=== PATIENT | male | born 1975 | race Caucasian/White ===

== ENCOUNTER 2020-10-08 | Inpatient (IN) | payer MEDICAID ==
--- NOTE | 2020-10-07 20:30 | NUR ---
STARTED TRIAGE IN TRIAGE BECAUSE OF NO BEDS AVAILABLE. NEIGHBOR RANDY BOOTH BROUGHT PT IN AND ASSISTED WITH WHAT HE KNEW. [phone]
--- NOTE | 2020-10-07 20:50 | NUR ---
TO ROOM VIA W/C.
--- NOTE | 2020-10-07 21:30 | NUR ---
INTRODUCED SELF TO PT. PT RESTING ON STRETCHER WITH EYES OPEN. SPEECH IS UNCLEAR AND UNABLE TO ASCERTAIN WORDS. STATES "MY NEIGHBOR BROUGHT ME IN" PT DOES RECOGNIZE SELF AND YEAR BUT UNABLE TO RECOLLECT CURRENT LOCATION. RESPONDS TO PAINFUL AND VERBAL STIMULI. PT WITH POOR VENOUS ACCESS AND UNABLE TO OBTAIN LINE AND LABS. DR VELASCO NOTIFIED. CHICHI TREVINO IN ROOM FOR IV ACCESS ATTEMPT.
--- NOTE | 2020-10-07 22:00 | NUR ---
PT REETURNS FROM RADIOLOGY AND PLACED ON MONITOR. ATTEMPT MADE FOR IV SUCCESSFUL TO LEFT POSTERIOR WRIST WITH BLOOD SPECIMENS OBTAINED AND COVID SWAB COLLECTEED. PT TOLERATED WELL. IVF INTIATED TO SITE AND SECURED WITH COBAN.
[2020-10-07 22:34] LABS: HEMATOCRIT 38.4 % (39.0-50.0); HEMOGLOBIN 12.5 g/dl (14.0-18.0); IMMATURE GRANULOCYTES 0.9 % (0.0-5.0); MEAN CELL VOLUME 84.4 fL CALC (80.0-100.0); MEAN CORPUSCULAR HGB 27.5 pG CALC (26.0-32.0); MEAN CORPUSCULAR HGB CONC 32.6 g/dL CAL (32.0-36.0); NEUT# 9.94 thou/uL (1.82-7.42); RED BLOOD COUNT 4.55 mill/uL (4.70-6.10); RED CELL DISTRI WIDTH 15.4 % (11.5-15.5)
[2020-10-07 22:50] LABS: ALBUMIN 3.1 g/dL (3.2-5.0); BILIRUBIN, TOTAL 2.4 mg/dL (0.0-1.4); CREATININE 1.7 mg/dL (0.7-1.3); POTASSIUM 3.4 mmol/l (3.5-5.1); TOTAL PROTEIN 6.6 g/dL (6.3-8.2)
[2020-10-07 22:59] LABS: PROTHROMBIN TIME 10.5 SECONDS (9.0-12.5)
--- NOTE | 2020-10-07 23:15 | NUR ---
PT PROVIDED URINAL TO ATTEMPT FOR URINE SPECIMEN
--- NOTE | 2020-10-07 23:30 | NUR ---
PT UNABLE TO PROVIDE URINE SPECIMEN, DR VELASCO GIVES OKAY FOR PO FLUIDS. PT PROVIDED WATER BOTTLE. URINAL BEDSIDE.
[2020-10-08] VITALS (59 sets, daily range): BP systolic 76–184; BP diastolic 40–93
--- NOTE | 2020-10-08 00:10 | NUR ---
PT UNABLE TO PRODUCE URINE, PT CONSENTED FOR STRAIGHT CATH SPECIMEN. APPX 30 ML OF URINE OBTAINED VIA STERILE TECHNIQUE. PT TOLERATED WELL. SPECIMEN SENT TO LAB FOR ANALYSIS.
--- NOTE | 2020-10-08 00:45 | NUR ---
IV BICARB DRIP INTIATED PER ORDER. INFUSING TO LEFT WRIST WITHOUT DIFFICULTY RESTING ON STRETCHER WITH EYES OPEN AND SNORING. REST EVEN AND UNLABORED. SKIN WARM AND DRY. BUSINESS PLANNING ANALYST IN PLACE.
[2020-10-08 00:46] LABS: URINE BILIRUBIN - DIPSTICK NEGATIVE (NEGATIVE); URINE BLOOD DIPSTICK LARGE (NEGATIVE); URINE COLOR YELLOW; URINE GLUCOSE - DIPSTICK NEGATIVE (NEGATIVE); URINE KETONE NEGATIVE (NEGATIVE); URINE NITRITE - DIPSTICK NEGATIVE (Negative); URINE PH 5.5 (4.5-8.0); URINE PROTEIN - DIPSTICK 30 mg/dL (NEG-TRACE)
[2020-10-08 00:55] LABS: URINE EPITHELIAL CELLS FEW EPI/hpf (0-FEW); URINE LEUK ESTERASE NEGATIVE (NEGATIVE)
[2020-10-08 00:56] LABS: URINE AMORPH SEDIMENT MANY hpf (NONE-FER); URINE BACTERIA MANY hpf; URINE COARSE GRANULAR CAST FEW lpf; URINE FINE GRAN CAST FEW lpf
--- NOTE | 2020-10-08 01:10 | NUR ---
REPORT GIVEN TO ANITA TREVINO.
--- NOTE | 2020-10-08 01:35 | NUR ---
Admission Note Report Given to: ANITA TREVINO Transported by: Wheelchair X Stretcher Transported with: X Nurse X Transporter X Patent IV O2 X Streetcar Dispatcher Location: ICU X MS2 PT TRANSPORTED TO [place] VIA STRETCHER WITH TELE IN PLACE AND FLUIDS HANGING. NURSE ANITA MADE AWARE OF PTS ARRIVAL TO FLOOR. CARE RELINQUISHED A THIS TIME.
--- NOTE | 2020-10-08 02:30 | NUR ---
PATIENT ADMITTED FROM ER VIA STRETCHER WITH 2 ER STAFF IN ATTENDANCE. PATIENT MAX ASSIST TO TRANSFER INTO BED. PATIENT IS DROWSY AND NOT REPONDING TO MOST OF OF THE QUESTIONS BEING ASKED. PATIENT DOES RESPOND TO HIS NAME AND DOES KNOW HIS BIRTHDATE. PATIENT THINKS THAT HE IS IN [facility]. TELE MONITOR IN PLACE. VS TAKEN AND RECORDED. O2 SAT IS 99% ON ROOM AIR. IV SITE TO LEFT WRIST INTACT WITH IVF PATENT AND INFUSING ORDERED. LR HUNG AND INFUSING AT 250CC/HR. ATTEMPT TO ORIENT PATIENT TO ROOM AND SURROUNDINGS IS NOT SUCCESSFUL. BED ALARM IN PLACE FOR PATIENT SAFETY. CALL LIGHT IN REACH. WILL CONT TO MONITOR.
--- NOTE | 2020-10-08 04:30 | NUR ---
PATIENT RESTING IN BED WITH SEVERE AGWBMCW-BP-204'S WITH ELEVATED BP. IVF LR PATENT AND INFUSING VIA LEFT WRIST IV SITE AT 250CC/HR. PATIENT DID VOID 800CC OF YELLOW URINE. DR. VELASCO CALLED AND NEW ORDER FOR ATIVAN OBTAINED. WILL MEDICATE SOON PROFILED ON EMAR. WILL CONT TO MONITOR.
--- NOTE | 2020-10-08 05:00 | NUR ---
PATIENT RESTING IN BED WITH SEVERE TREMORS AND SHAKES EVEN AFTER RECIEVING ATIVAN 2MG IVP VIA LEFT WRIST SITE. RESP RATE IS ELEVATED AND PATIENT IS TRASHING ABOUT IN BED. LAB WORK WAS DRAWN FROM RIGHT HAND SITE.HR IS ELEVATED TO 140-150'S. IVF LR PATENT AND INFUSING AT 250CC/HR ORDERED. INCONT URINE . DILL CATH WAS INSERTED WITHOUT ANY DIFFICULTY DRAINING YELLOW URINE.#16 TURKMEN DILL CATH. CALL PLACED TO DR. VELASCO IN THE ER AND ORDER RECIEVED TO TRANSFER TO ICU. CALL PLACED TO PHANI AMAYA REGUARDING TRANSFER TO ICU. CALL PLACED TO ICU AND SPOKE TO CELIA TREVINO-PATIENT TO GO TO ICU BED 2. PATIENT TRANSFERRED TO ICU2 BED 2 VIA BED. PATIENT CONT TO HAVE SEVERE TREMORS AND THRACHING IN BED. BEDSIDE REPORT GIVEN TO CELIA TREVINO AND LINDA ARCHULETA.
--- NOTE | 2020-10-08 05:05 | NUR ---
RECEIVED INTO ICU BED VIA BED FROM M/S. PATIENT EYES OPEN ALTHOUGH NOT ANSERING ANY QUESTIONS. ABLE TO MOVE ALL EXTREMITIES. PUPILS DILATED WITH BRISK REACTION TO LIGHT. CHILLING NOTED, TEMP 101.0. RESP SHALLOW, TACHYPNEIC. 0O2 SAT 93% BREATH SOUNDS CLEAR. DILL DRAINING SMALL AMOUNT OF SUSAN URINE. NO PERIPHERAL EDEMA, PULSES INTACT. IV IN LFA WITH LR INFUSING AT 250 ML/HR. COW TESTER SHOWS ST, HR 140'S-150'S.
--- NOTE | 2020-10-08 06:05 | NUR ---
O2 SAT 88% APPLIED O3 PER NC AT 3 L.
--- NOTE | 2020-10-08 06:10 | NUR ---
CALL TO MELISSA SARMIENTO/EFRAIN TO REPORT TEMP ELEVATION OF 104.2, SUSTAINED HR 140'S-150'S. NEW ORDERS RECEIVED.
[2020-10-08 06:24] LABS: HEMATOCRIT 39.2 % (39.0-50.0); HEMOGLOBIN 12.8 g/dl (14.0-18.0); MEAN CELL VOLUME 83.4 fL CALC (80.0-100.0); MEAN CORPUSCULAR HGB 27.2 pG CALC (26.0-32.0); MEAN CORPUSCULAR HGB CONC 32.7 g/dL CAL (32.0-36.0); RED BLOOD COUNT 4.7 mill/uL (4.70-6.10); RED CELL DISTRI WIDTH 15.8 % (11.5-15.5)
--- NOTE | 2020-10-08 06:30 | NUR ---
INCONTINENT OF LARGE AMOUNT OF FORMED WITH SOME LOOSE STOOL. SKIN CRE DONE , PARTIAL BED CHANGE.
[2020-10-08 06:32] LABS: IMMATURE GRANULOCYTES 0.4 % (0.0-5.0); NEUT# 3.69 thou/uL (1.82-7.42)
[2020-10-08 06:33] LABS: ANION GAP 14 (6-22 (CALC)); BUN 52 mg/dL (9-20); BUN/CREATININE RATIO 38 (12-20 (CALC)); CARBON DIOXIDE 22 mmol/l (22-30); CHLORIDE 108 mmol/l (95-108); CREATININE 1.4 mg/dL (0.7-1.3); GFR 54 ML/MIN (>=60 (CALC)); GFR FOR AFR.AMER. > 60 ML/MIN (>=60 (CALC)); SODIUM 140 mmol/l (137-146)
[2020-10-08 06:36] LABS: POTASSIUM 4.1 mmol/l (3.5-5.1)
--- NOTE | 2020-10-08 06:45 | NUR ---
REPORT RECEIVED FROM CELIA TREVINO. CARE ASSUMED.
--- NOTE | 2020-10-08 07:15 | NUR ---
PT RESTING IN BED AWAKE. PT IS ALERT. SPEECH IS GARBLED. UNABLE TO ASSESS ORIENTATION. SHIFT ASSESSMENT COMPLETED AT THIS TIME. SPOKE WITH MELISSA ZUNIGA ABOUT ELEVATED LACTIC ACID, LOW BP, ELEVATED, TEMP AND HEART RATE. NEW ORDERS RECEIVED. CALL LIGHT IN REACH. WILL CONTINUE TO MONITOR.
--- NOTE | 2020-10-08 07:45 | NUR ---
DR ESPANA AT BEDSIDE FOR CENTRAL LINE PLACEMENT.
[2020-10-08 07:56] LABS: ETHYL ALCOHOL 0 mg/dl (0-30)
--- NOTE | 2020-10-08 08:25 | NUR ---
DR CARBAJAL AT BEDSIDE.
--- NOTE | 2020-10-08 08:29 | NUR ---
RADIOLOGY AT BEDSIDE FOR PORTABLE CXR TO VERIFY CENTRAL LINE PLACEMENT.
--- NOTE | 2020-10-08 10:11 | NUR ---
1000 LABS OBTAINED FROM CENTRAL LINE AT THIS TIME. PT TOLERATED WELL.
--- NOTE | 2020-10-08 10:48 | NUR ---
CRITICAL LACTIC ACID RESULT OF 3.7, RESULTS COMMUNICATED WITH Christina SARMIENTO APRN.
[2020-10-08 10:54] LABS: ALBUMIN 2.3 g/dL (3.2-5.0); ALKALINE PHOSPHATASE 263 u/l (38-126); ANION GAP 12 (6-22 (CALC)); BILIRUBIN, TOTAL 2.9 mg/dL (0.0-1.4); BUN 49 mg/dL (9-20); BUN/CREATININE RATIO 36 (12-20 (CALC)); CARBON DIOXIDE 23 mmol/l (22-30); CHLORIDE 107 mmol/l (95-108); CREATININE 1.4 mg/dL (0.7-1.3); GFR 54 ML/MIN (>=60 (CALC)); GFR FOR AFR.AMER. > 60 ML/MIN (>=60 (CALC)); POTASSIUM 2.8 mmol/l (3.5-5.1); SGOT/AST 275 u/l (17-59); SODIUM 139 mmol/l (137-146); TOTAL PROTEIN 5.2 g/dL (6.3-8.2)
--- NOTE | 2020-10-08 11:15 | NUR ---
POTASSIUM ON 1000 LABS SHOWS 2.8. SPOKE WITH Christina HUNTLEY. 40 K IV ORDERED WITH REPEAT LABS AT 1500
--- NOTE | 2020-10-08 11:37 | NUR ---
PT RESTING IN BED. OT IS ABLE TO STATE NAME AT THIS TIME. SPEECH CONTINUES TO BE GARBLED. TEMP DOWN TO 98.7. CALL LGT IN REACH. WILL CONTINUE TO MONITOR CLOSELY.
--- NOTE | 2020-10-08 12:58 | NUR ---
S: TIFFANYLAVELL YANEZ is a 45 M who presents with sepsis/septic shock. He has a past medical history of heart disease. All medications in patient's chart were reviewed. O: VS: BP 142/85 mmHg, P 94 beats per minute, RR 25 breathes per minute, T 98.7 F W 69.003 kg, HT 75 in, Scr=1.4 mg/dL, CrCl= 63.7 ml/min A: Blood culture and urine cultures are pending. P: Patient is on Zosyn 4.5 g IV Q6H, and received gentamicin 420 mg IV x 1 . Vancomycin ordered for pharmacy to dose. Start Vancomycin 750 mg IV Q12H. Vancomycin trough is drawn before the 4th dose on 10/09/20 @ 2130. Vancomycin goal trough is between 15-20 mcg/ml. Pharmacy will follow and or advise on antibiotics use as needed.
--- NOTE | 2020-10-08 13:58 | NUR ---
PT ATTTEMPTING TO GET OUT OF BED UNSAFE. PT ASSISTED BACK TOBED. LOOSE BM. CLEANSED. DILL CARE PROVIDED. PT GIVEN ATIVAN PER MAR FOR INCREASED AGITATION. CALL LIGHT IN REACH. BED ALARM IN PLACE FORPT SAFETY. WILL CONTINUE TO MONITOR
--- NOTE | 2020-10-08 14:37 | NUR ---
ROOMMATE CALLED UNIT IDENTIFYING HERSELF ELIDA REQUESTING UPDATE. UNABLE TO PROVIDE PT PRIVACY CODE OR . EXPLAINED HIPPA AND THAT WOULD BE HAPPY TO ASK PT IF OK TO GIVE INFO ONCE HE WAKES UP.
--- NOTE | 2020-10-08 15:15 | NUR ---
1500 LABS OBTAINED FROM [facility] AND SENT TO LAB FOR REFERENCE
--- NOTE | 2020-10-08 15:46 | NUR ---
PT FIDGETING IN BED. INTO ROOM TO ASSESS [T. PT ABLE TO STATE NAME. PT REMAINS CONFUSED ON WHERE HE IS. ASKE DPT IF HE KNEW WHO RANDY AND ELIDA ARE AND IF THEY CAN HAVE INFORMATION. PT STATES NO.
[2020-10-08 15:52] LABS: ALBUMIN 2.3 g/dL (3.2-5.0); ALKALINE PHOSPHATASE 224 u/l (38-126); BILIRUBIN, TOTAL 3.5 mg/dL (0.0-1.4); BUN 42 mg/dL (9-20); BUN/CREATININE RATIO 38 (12-20 (CALC)); CHLORIDE 108 mmol/l (95-108); CREATININE 1.1 mg/dL (0.7-1.3); GFR > 60 ML/MIN (>=60 (CALC)); GFR FOR AFR.AMER. > 60 ML/MIN (>=60 (CALC)); SGOT/AST 244 u/l (17-59); SODIUM 139 mmol/l (137-146); TOTAL PROTEIN 5.1 g/dL (6.3-8.2)
[2020-10-08 15:57] LABS: ANION GAP 7 (6-22 (CALC)); CARBON DIOXIDE 28 mmol/l (22-30); POTASSIUM 3.7 mmol/l (3.5-5.1)
--- NOTE | 2020-10-08 17:20 | NUR ---
PT INCONTINENT OF STOOL AT THIS TIME. PT CLENASED DILL CARE PROVIDED. PT SET UP FOR PM MEAL. PT IS NOW ABLE TO STATE HIS NAME, AND TIME (PRESIDENT). KNOWS HE IS FROM [place] REORIENTED TO LOCATION. PT THANKFUL FOR CARE
--- NOTE | 2020-10-08 18:06 | NUR ---
PT REMAINS ON BIPAP SITTING IN CHAIR. PT TOLERATING WELL. RN AWARE.
--- NOTE | 2020-10-08 18:34 | NUR ---
EX DAVID CALLED. PT GAVE PERMISSION TO GIVE DAVID INFORMATION. UPDATED
--- NOTE | 2020-10-08 19:30 | NUR ---
RESTING IN BED WITH EYES CLOSED. OPENS EYS TO NAME. RESP NON-LABORED. O2 SAT 96% ON RA. BREATH SOUNDS CLEAR THROUGHOUT. OCC NON-PRODUCTIVE COUGH NOTED. PATIENT SLT ANXIOUS, CALMS TO VERBAL CUES. MOVES ALL EXTREMITIES ALTHOUGH C/O OF HURTING ALL OVER AND MOANS AND GROANS WITH MOVEMENT. FOLLOWS DIRECTIONS. ONLY ABLE TO STATE NAME. ATTEMPTS TO REORIENT TO PLACE, TIME AND SITUATION. SALINE LOCK IN PLACE IN LH. RSCTLC IN PLACE WITH LR INFUSING AT 250 ML/HR. DILL DRAINS DARK YELLOW URINE. EXPLAINED PLAN OF CARE. REINFORCE TEACHING PRN. CALL AVILES IN REACH.
--- NOTE | 2020-10-08 20:30 | NUR ---
ASSISTED PATIENT UP TO BSC FOR LARGE LIQUID DARK BROWN STOOL. STOOL SAMPLE OBTAINED AND SENT TO LAB FOR CDIFF AND GI PANEL. ATIVAN 1 MG IVP FOR ANXIETY/RESTLESSNESS.
--- NOTE | 2020-10-08 22:00 | NUR ---
RESTING QUIETLY IN BED WITH EYES CLOSED. VSS. SR ON MONITOR.
--- NOTE | 2020-10-08 22:05 | NUR ---
PATIENT HAD A CALL FROM JUMA GONZALES HE BROUGHT PATIENT TO HOSPITAL YESTERDAY. CALLER UNABLE TO PROVIDED PASSCODE. PATIENT ASLEEP SO UNABLE TO VERIFY WITH HIM IF IT IS OK TO GIVE INFORMATION- OF EARLIER TODAY INFORMATION ONLY TO BE GIVEN TO DAVID. ADVISED CALLER TO CALL BACK IN THE MORNING.
[2020-10-09] VITALS (17 sets, daily range): BP systolic 83–148; BP diastolic 49–88
--- NOTE | 2020-10-09 00:20 | NUR ---
PATIENT DOZES ON AND OFF. VSS. RESP NON-LABORED. SR ON MONITOR. AFEBRILE.
--- NOTE | 2020-10-09 02:00 | NUR ---
PATIENT INCONTINENT OF LARGE AMOUNT OF LIQUID GREENISH/GOLD STOOL. PATIENT BATHED AND LINENS CHANGED.
--- NOTE | 2020-10-09 02:31 | NUR ---
PATIENT RESTLESS. APPOLOGETIC REGARDING INCONTINENCE, SUPPORT AND REASSURANCE PROVIDED. MEDICATED WITH ATIVAN ORDERED FOR RESTLESSNESS.
--- NOTE | 2020-10-09 04:00 | NUR ---
RESTING WITH EYES CLOSED. VSS. LR CONTINUES TO INFUSE AT 250 ML/HR. SR ON MONITOR.
--- NOTE | 2020-10-09 06:00 | NUR ---
INCONTINENT OF LARGE AMOUNT OF LIQUID STOOL AGAIN. SKIN CARE AND CHUX CHANGED. BLOOD DRAWN FROM [facility] FOR LABS. [facility] HAS GOOD BLOOD RETURN, ALL PORTS FLUSHED PRE AND POST BLOOD DRAW PER PROTOCOL.
[2020-10-09 06:24] LABS: MEAN CORPUSCULAR HGB CONC 32.1 g/dL CAL (32.0-36.0); RED BLOOD COUNT 3.82 mill/uL (4.70-6.10); RED CELL DISTRI WIDTH 15.4 % (11.5-15.5)
[2020-10-09 06:45] LABS: HEMATOCRIT 32.1 % (39.0-50.0); HEMOGLOBIN 10.3 g/dl (14.0-18.0)
[2020-10-09 06:47] LABS: IMMATURE GRANULOCYTES 0.5 % (0.0-5.0); NEUT# 8.41 thou/uL (1.82-7.42)
[2020-10-09 07:17] LABS: ALBUMIN 2.2 g/dL (3.2-5.0); ALKALINE PHOSPHATASE 168 u/l (38-126); BUN 34 mg/dL (9-20); BUN/CREATININE RATIO 35 (12-20 (CALC)); CARBON DIOXIDE 25 mmol/l (22-30); CHLORIDE 111 mmol/l (95-108); GFR > 60 ML/MIN (>=60 (CALC)); GFR FOR AFR.AMER. > 60 ML/MIN (>=60 (CALC)); SGOT/AST 194 u/l (17-59); SODIUM 140 mmol/l (137-146)
[2020-10-09 07:18] LABS: ANION GAP 7 (6-22 (CALC)); POTASSIUM 2.9 mmol/l (3.5-5.1)
--- NOTE | 2020-10-09 08:41 | NUR ---
PRELIM BLOOD CX RESULTS SHOW GRAM NEGATIVE RODS IN 3/[address] CARBAJAL. PT IS RECEIVING ZOSYN 4.5G IV Q6H AND VANCOMYCIN 750MG IV Q12H. WILL F/U WITH FINAL RESULTS
--- NOTE | 2020-10-09 11:30 | NUR ---
PT SLEEPING AT THIS TIME, MOUTH OPEN RR 35. NO S/S OF DISTRESS NOTED. LEVO RESTARTED AT 1046 D/T PATIENT INCREASINGLY HYPOTENSIVE. DRIP CURRENTLY AT 6MCG/ML/MIN PT AFEBRILE AT THIS TIME. STILL ONLY ALERT TO SELF, WILL GRUNT WHEN MOVED/REPOSITIONED. TWO WATERY BM'S THIS AM, PATIENT IS INCONTINENT OF BOWEL AT THIS TIME.
--- NOTE | 2020-10-09 13:34 | NUR ---
PT HAS BEEN RESTLESS, HE DID COUGH AND MOTION FOR SOMETHING TO "SPIT" IN, WHICH GEOMETRICIAN PROVIDED. ASKED PT IF HE KNEW WHERE HE WAS AND HIS NAME, PATIENT WAS UNABLE TO EITHER QUESTION. PT HAVING EPISODES OF INCONTINENT STOOL. DILL CATHETER INTACT AND DRAINING SUSAN URINE. PT IS AFEBRILE. SR ON MONITOR. RR 28-30.
--- NOTE | 2020-10-09 14:52 | NUR ---
PT RESTING QUIETLY AFTER SECURITY AND COMPLIANCE ANALYST AND ANOTHER RN CLEANED UP SMALL INCONTINENT STOOL. PT APPEARED TO BE MORE ALERT AND WAS ABLE TO SAY THAT HE WAS "FREEZING", AND ACKNOWLEDGED PAIN. DILL SECURE, PATENT AND DRAINING. LEVO RUNNING AT 4MCG/ML/MIN AT THIS TIME. VSS AND PT REMAINS AFEBRILE.
--- NOTE | 2020-10-09 19:30 | NUR ---
received report for this pt and in bed with eyes closed. noted moaning out at times and unable to verbalize needs appropriately. BP within normal limits. continues on the levophed with no complications noted. HOB SLIGHTLY ELEVATED AND CALL LIGHT IS WITHIN REACH. WILL CONTINUE TO OBSERVE
--- NOTE | 2020-10-09 19:37 | NUR ---
RECEIVED REPORT FOR THIS PT AND IN RECLINER CHAIR AT BEDSIDE. NO S/S OF DISTRESS NOTED. RESPIRATIONS ARE EVEN AND NON LABORED. ON VAPOTHERM WITH NO COMPLICATIONS NOTED. CALL LIGHT WITHIN REACH.
--- NOTE | 2020-10-09 20:45 | NUR ---
PT NOTED WITH INCREASED AGITATION CURSING AT STAFF AND RESTLESS. PULLING AT IV AND AND DILL CATTHETER AND RESISTIVE WHEN ATTEMPTING TO PROVIDE CARE. ATIVAN 1MG WAS GIVEN IV. ADL CARE PROVIDED. BP 148/88 RESPIRATION 36 PULSE 120 TEMPT 99.7 TP. PT CURRENTLY ON ABT THERAPY VANCO AND ZOSYN. LACTATED RINGERS RUNNING AT 100ML/HR. LEVOPHED AT 2MCG/MIN AND MONITORING BLOOD PRESSURES. LUNG SOUNDS ARE CLEAR AND EQUAL. HEART RHYTHM TACHYCARDIC. DILL CATH IN PLACE AND DRAINING SUSAN COLORED URINE WITH SEDIMENT NOTED. LOOSE STOOLS NOTED AND INCONTINENCE CARE PROVIDED. PT HAS GARBLED SPEECH AT TIMES AND AT TIMES CAN VERBALIZE PAIN. POOR ORAL INTAKES AND DECLINING FOOD AT THIS TIME. BOWEL SOUNDS ARE ECTIVE IN ALL QUADRANTS. ABLE TO ACTIVELY MPOVE ALL EXTREMITIES. HOB ELEVATED AN REPOSITIONING SELF IN BED. BED IN LOW POSITION AND WILL CONTINUE TO OBSERVE
--- NOTE | 2020-10-09 21:12 | NUR ---
PT CONTINUES TO PULL AT IV LINES, VITALS LINES AND DILL CATH. UNABLE TO CALM WITH VERBAL STIMULI. MD WAS CALLED AND OK TO PLACE RESTRAINTS WELL NEW ATIVAN ORDERS.
--- NOTE | 2020-10-09 22:26 | NUR ---
PT APPEARS TO BE SOMEWHAT LESS RESTLESS. RESPIRATIONS ARE RAPID AND SOME SQUIRMING IN BED. RESTRAINTS ARE IN PLACE PRESCRIBED GAVE CRANBERRY JUICE AND TOLERATED WELL. HOB ELEVATED AND CONTINUES ON TELEMETRY. CALL LIGHT IS WITH REACH. WILL CONTINUE TO OBSERVE-
[2020-10-10] VITALS (20 sets, daily range): BP systolic 98–141; BP diastolic 30–90
--- NOTE | 2020-10-10 00:37 | NUR ---
PT CONTINUES TO BE RESTLESS. CURSING AND ATTEMMPTING TO HIT AT STAFF WHILE PROVIDIG INCONTINENCE CARE. PT HAS LOOSE STOOLS NOTED X 3 BROWNISH YELLOWISH IN COLOR. PT HAS TEMPT 101.5TP AND BP 93/56 AND RECHECKED 100/58. OXYGEN LEVEL DOWN TO 90% ROOM AIR AND LABORED BREATHING NOTED RESPIRATIONS 36 BREATHS PER MINUTE LUNG SOUNDS ARE CLEAR AND EQUAL. O2 APPLIED AT 2 THEN INCREASED TO 3L AND MAINTAINING O2 SAT ABOVE 92%. OXYGEN AT 2LNC AT THIS TIME. WAS CALLED AND UPDATED ON CHANGE IN CONDITION AND TO CONTINUE THE TORADOL FOR ELEVATED TE MPT. COOL APPLICQATION APPLIED AT UNDERAMS. LEVOPHED CONTINUES AT 2MCG/MIN AND LACTATED RINGERS AT 100ML/HR. VANCO TROUGH 8. VANCO WAS ADMINISTERED ORDERED. HOB ELEVATED AND WILL CONTINUE TO OBSERVE
--- NOTE | 2020-10-10 00:45 | NUR ---
IV ATIVAN WAS GIVEN FOR INCREASED RESTLESS AND AGITATION WHILE GIVING INCONTINENCE CARE. PT CURSING AND TRYING TO HIT AT STAFF. ONE TO ONE KARLIE BAL CUES NOT EFFECTIVE
--- NOTE | 2020-10-10 01:43 | NUR ---
PT IN BED WITH EYES CLOSED AND NO RESPIRATORY DISTRESS NOTED. NO RESTLESS NOTED AT THIS TIME. HEARTRATE 109BPM SINUS TACHYCARDIA WITH PVC'S NOTED. MD AWARE. O2 SAT 97% AND O2 DECRESED TO 1LNC. WILL CONTINUE TO OBSERVE
--- NOTE | 2020-10-10 03:47 | NUR ---
PT IN BED WITH EYES CLOSED. CONTINUES TO HAVE PERIODS OF AGITATION AND RESTLESSNESS. ATIVAN GIVEN IV PRESCRIBED. RESTRAINT IN PLACE AND RELEASED FOR CARE AND REPOSITION. FLUIDS GIVEN AND TOLERATED WELL.
--- NOTE | 2020-10-10 06:20 | NUR ---
PT IN BED WITH EYES CLOSED. RESTING COMFORTABLY AT THIS TIME. REPOSITIONED IN BED WITH 2 STAFF ASSIST. OXYGEN THERAPY IN PLACE AND NO RESPIRATORY DISTRESS NOTED. WAS GIVEN ATIVAN FOR INCREASED RESTLESS AND AGITATION AND EFFECTIVE. CONTINUES ON LEVOPHED AND BLOOD PRESSURES ARE STABLE. CONTINUES ON VANCOMYCIN/ZOSYN IV ABT THERAPY. DILL CATHETER IN PLACE AND DRAINING SUSAN 600ML. MILD SEDIMENT NOTED. REDNESS NOTD TO SCROTAL AREA. BARRIER CREAM. HOB ELEVATED. RESTRAINTS IN PLACE.
[2020-10-10 06:23] LABS: HEMATOCRIT 26.5 % (39.0-50.0); HEMOGLOBIN 8.6 g/dl (14.0-18.0); MEAN CELL VOLUME 84.1 fL CALC (80.0-100.0); MEAN CORPUSCULAR HGB 27.3 pG CALC (26.0-32.0); MEAN CORPUSCULAR HGB CONC 32.5 g/dL CAL (32.0-36.0); RED BLOOD COUNT 3.15 mill/uL (4.70-6.10); RED CELL DISTRI WIDTH 15.5 % (11.5-15.5)
[2020-10-10 06:28] LABS: IMMATURE GRANULOCYTES 1.2 % (0.0-5.0); NEUT# 10.12 thou/uL (1.82-7.42)
--- NOTE | 2020-10-10 07:00 | NUR ---
RECEIVED REPORT FROM NIGHT RN. PT LYING SUPINE IN BED, BILATERAL WRIST RESTRAINTS IN PLACE, PULSES STRONG EQUAL BILATERALLY. PT REMAINS CONFUSED AND MOANING. DILL INTACT, DRAINING SUSAN/REDDISH CLOUDY URINE. R SUBCLAVIAN TL CATHETER WITH LR@100ML/HR, LEVO@2MCG/ML/MIN. 2L NC, VSS, SR ON MONITOR.
[2020-10-10 07:37] LABS: ALKALINE PHOSPHATASE 155 u/l (38-126); BUN 35 mg/dL (9-20); BUN/CREATININE RATIO 28 (12-20 (CALC)); CARBON DIOXIDE 26 mmol/l (22-30); CPK 206 u/l (52-200); CREATININE 1.3 mg/dL (0.7-1.3); GFR 59 ML/MIN (>=60 (CALC)); GFR FOR AFR.AMER. > 60 ML/MIN (>=60 (CALC)); MAGNESIUM 2.3 mg/dL (1.6-2.3); SGOT/AST 87 u/l (17-59); TOTAL PROTEIN 4.7 g/dL (6.3-8.2)
[2020-10-10 07:50] LABS: ANION GAP 7 (6-22 (CALC)); CHLORIDE 114 mmol/l (95-108); POTASSIUM 2.9 mmol/l (3.5-5.1); SODIUM 144 mmol/l (137-146)
--- NOTE | 2020-10-10 08:56 | NUR ---
PT REMAINS CONFUSED, RESTLESS WITH PERIODS OF MOANING, BL WRIST RESTRAINTS REMAIN IN PLACE, PULSES STRONG AND EQUAL BILATERALLY.
[2020-10-10] MEDS ORDERED: MOBIC7.5 M1 PO (09:11)
[2020-10-10] MEDS ORDERED: ZOLPIDEM10 M1 PO (09:11)
[2020-10-10] MEDS ORDERED: OXYCODONE30 MG PO (09:12)
[2020-10-10] MEDS ORDERED: FOLIC ACID1 M1 PO (09:14)
--- NOTE | 2020-10-10 12:00 | NUR ---
PT INCONTINENT OF BOWEL, SMALL GREEN LIQUID STOOL. PT IS MORE ALERT AND CAN ANSWER SIMPLE QUESTIONS. C/O OF BEING "SORE" FROM A FALL "LAST NIGHT". PATIENT ABLE TO DRINK WATER FROM STRAW WO S/S OF ASPIRATION. REMAINS ON 2L NC VSS, AFEBRILE AT THIS TIME.
--- NOTE | 2020-10-10 13:38 | NUR ---
PLACED PT ON 30% VENTURI MASK PER PT REQUEST FOR MORE SUPPLEMENTAL OXYGEN.
--- NOTE | 2020-10-10 13:45 | NUR ---
PT REMAINS RESTLESS AFTER ATIVAN ADMINISTRATION. VSS ELEVATED, RR ARE 40+ AND LABORED AT THIS TIME. STAT CHEST XRAY ORDERED FOR SOB. LEVO HELD FOR HYPERTENSION, AND FLUIDS STOPPED D/T RISK OF VOLUME OVERLOAD. PATIENT EXHIBITS ELEVATED TEMP AT 101.3.
--- NOTE | 2020-10-10 16:00 | NUR ---
NOTIFIED PROVIDER OF XRAY RESULTS, NEW ORDERS RECEIVED FOR 1X DOSE IV LASIX. PATIENT AFEBRILE AFTER TORDOL GIVEN, RR STILL 38-40+ AND MOD LABORED. BP IS 99/55. LEVO RESTARTED TO MAINTAIN MAP >65.
--- NOTE | 2020-10-10 20:04 | NUR ---
RECEIEVED REPORT FOR THIS PT AND IN BED WITH EYES OPEN. ABLE TO MAKE SOME NEEDS KNOWN. RESPIRATION ARE EVEN AND NON LABORED. HEART RHYTHM REGULAR. LUNG SOUNDS ARE CLEAR IN UPPER LUNG SEWELL AND EXPIRATORY WHEEZING NOTED IN RIGHT LOWER QUADRANT. PT HAD LOOSE STOOLS NOTED X 1 THAT WAS GREEN IN COLOR AND INCONTINENCE CARE PROVIDED. REDNESS NOTED TO SCROTAL AREA. STATED HE WAS IN PAIN AND MEDICATED WIT MORPHINE. IV SITE IS INTACT AND NO BLEEDING NOTED. DRESSING IS INTACT. DILL CATH IS IN PLACE AND DRAINING SUSAN COLORED URINE. HOB ELEVATED. OXYGEN THERAPY IN PLACE AND NO RESPIRATORY DISTRESS NOTED. WILL CONTINUE TO OBSERVE
--- NOTE | 2020-10-10 22:00 | NUR ---
PT IN BED WITH EYES OPEN AND SOME RESTLESSNESS NOTED. PT PULLING AT VITALS EQUIPMENT. REDIRECTION IS NOT EFFECTIVE. RESTRAINTS APPLIED ORDERED. PT HAS DILL IN PLACE DRAINING SUSAN COLORED URINE WITH MILD SEDIMENT NOTED. MEDICATED FOR PAIN DUE TO PT MOANING AND WHEN ASKED REGARDING PAIN HE STATED YES HE WAS IN PAIN. FLUIDS GIVEN BY MOUTH AND PT TOLERATED WELL. CALL LIGHT IS WITHIN REACH
[2020-10-11] VITALS (21 sets, daily range): BP systolic 115–170; BP diastolic 70–94
--- NOTE | 2020-10-11 02:35 | NUR ---
PT RESTLESS AND AGITATED. PT VERY FIDGETY AND UNCONSOLABLE. BP 190/82 AND HR 113. RESPURATIONS 48 BREATHS PER MINUTE. PT GIVEN ATIVAN PRESCRIBED BY MD AND 1 TO 1 COMFORT GIVEN AT THIS TIME. LEVOPHED WAS DECREASED TO 3MCG/MIN. AND CONTINUING TO MONITOR BLOOD PRESSURES.
[2020-10-11 03:52] LABS: HEMATOCRIT 28.3 % (39.0-50.0); HEMOGLOBIN 9.1 g/dl (14.0-18.0); IMMATURE GRANULOCYTES 0.8 % (0.0-5.0); MEAN CELL VOLUME 84.7 fL CALC (80.0-100.0); MEAN CORPUSCULAR HGB 27.2 pG CALC (26.0-32.0); MEAN CORPUSCULAR HGB CONC 32.2 g/dL CAL (32.0-36.0); NEUT# 10.16 thou/uL (1.82-7.42); RED BLOOD COUNT 3.34 mill/uL (4.70-6.10); RED CELL DISTRI WIDTH 15.7 % (11.5-15.5)
[2020-10-11 04:09] LABS: ALBUMIN 2.3 g/dL (3.2-5.0); ALKALINE PHOSPHATASE 178 u/l (38-126); ANION GAP 8 (6-22 (CALC)); BILIRUBIN, TOTAL 3.8 mg/dL (0.0-1.4); BUN 31 mg/dL (9-20); BUN/CREATININE RATIO 28 (12-20 (CALC)); CARBON DIOXIDE 25 mmol/l (22-30); CHLORIDE 118 mmol/l (95-108); CREATININE 1.1 mg/dL (0.7-1.3); GFR > 60 ML/MIN (>=60 (CALC)); GFR FOR AFR.AMER. > 60 ML/MIN (>=60 (CALC)); POTASSIUM 3.1 mmol/l (3.5-5.1); SGOT/AST 67 u/l (17-59); SODIUM 147 mmol/l (137-146); TOTAL PROTEIN 5.3 g/dL (6.3-8.2)
--- NOTE | 2020-10-11 05:00 | NUR ---
LEVOPHED WAS STOPPED DUE TO STABLE BLOOD PRESSURE. PT IN BED WIOTH EYES CLOSED WITH SOME RESTLESSNESS NOTED THAT HAS IMPROVED. RESPIRATION EVEN AND NON LABORED AND AT 97% 4LNC. INCONTINENCE CARE PROVIDED AND TOLERATED WELL. HEAD OF BED ELEVATED AND CALL LIGHT WITHIN REACH. WILL CONTINUE TO OBSERVE
--- NOTE | 2020-10-11 06:26 | NUR ---
PT NO LONGER ON VENTURI MASK. APPEARS TO BE RESTING COMFORTABLY IN BED. NO ACUTE DISTRESS NOTED. VITAL SIGNS STABLE. SUPPLEMENTAL O2 ADMINISTERED VIA NASAL CANNULA. TENTERING MACHINE FEEDER TO MONITOR. NO CHANGES AT THIS TIME.
--- NOTE | 2020-10-11 07:25 | NUR ---
pt resting in bed with eyes closed; easily aroused; no apparent distress noted at this time; pt offers no complaints; assessment completed at this time; pt alert to person only; speech garbled/ slow; pt cooperative with staff at this time; denies pain although moaning frequently; no n/v noted; resp even and unlabored; lungs clear/ diminished bases; skin color wnl; o2 per nc at 4L; shot examiner cough noted; hr reg; pulses present; no edema noted; sr on monitor; abd soft with bs present; scant liquid yellow; slight excoriation noted to inner buttocks; pericare per documentation writer and buttpaste applied; de la rosa to gravity draining cloudy/ sediment angy urine; cath strap intact; TLC patent to right subclavian with ivf infusing without complication; no redness or edema noted at site; restraints released abd reapplied for nnursing care/ repositioning; repositioned to right side; plan of care/ am meds explained; call light within reach; will continue to monitor
--- NOTE | 2020-10-11 07:25 | NUR ---
pt resting in bed with eyes closed; easily aroused; offers no complaints; assessment completed at this time; pt alert to person only; speech garbled/ slow; pt cooperative with staff at this time; denies pain although moaning frequently; no n/v noted; resp even and unlabored; lungs clear/ diminished bases; skin color wnl; o2 per nc at 4L; hr reg; pulses present; no edema noted; sr on monitor; abd soft with bs present; no bm noted per abstract writer; pt admits to voiding without complication; no urine to inspect at this time; urinal at bedside; pt admits to bm last night; no stool to inspect at this time; TLC patent to Right subclav with ivf infusing without complication; no redness or edema noted at site; excoriation noted to perineal; pericare per staff and butt paste applied; restraints released for nursing care; repositioned to right side; plan of care/ am meds explained; call light within reach; will continue to monitor
--- NOTE | 2020-10-11 07:33 | NUR ---
pt medicated with ativan as per orders for agitation; restraints reinforced
--- NOTE | 2020-10-11 08:04 | NUR ---
resting in bed with eyes closed; declined breakfast; iv intact and patent; sr on monitor; call light within reach; will continue to monitor
--- NOTE | 2020-10-11 08:34 | NUR ---
Dr Samuel present at bedside to assess pt and discuss plan of care
--- NOTE | 2020-10-11 09:05 | NUR ---
awake in bed moaning; medicated as per orders; iv intact; de la rosa to gravity; sr on monitor; o2 per nc; call light within reach; will continue to monitor
--- NOTE | 2020-10-11 10:00 | NUR ---
awake in bed; moaning continues; iv intact and patent; restraints released and reapplied for nursing care; de la rosa to gravity; o2 per nc; repositioned; call light within reach; will continue to monitor
--- NOTE | 2020-10-11 11:16 | NUR ---
pt repositioned to left side
--- NOTE | 2020-10-11 12:02 | NUR ---
pt resting in bed with eyes closed; no apparent distress noted; iv intact and patent; no redness or edema noted at site; de la rosa to gravity; o2 per nc; npo for ultrasound; restraints intact and continued; call light within reach; will continue to monitor
--- NOTE | 2020-10-11 14:00 | NUR ---
pt resting in bed with eyes closed; iv intact and patent; sr on monitor; de la rosa to gravity; restraints released for repositioning; call light within reach; will continue to monitor
--- NOTE | 2020-10-11 15:26 | NUR ---
polysomnographic technician Amando present at bedside
--- NOTE | 2020-10-11 15:43 | NUR ---
pt awake in bed moaning loudly; admits to pain; temp 99.8. medicated as per orders; repositioned; iv intact and patent; sr on monitor; de [place] ro[place] to gravity; o2 per nc; call light within reach; will continue to monitor
--- NOTE | 2020-10-11 16:20 | NUR ---
resting in bed with eyes semi closed; no apparent distress noted; iv intact and patent; o2 per nc; sr on monitor; call light within reach; will continue to monitor
--- NOTE | 2020-10-11 17:16 | NUR ---
call received from [facility]; passcode verified; update provided; call passed to portable phone; staff at bedside holding phone while Anna speak with pt
--- NOTE | 2020-10-11 18:09 | NUR ---
pt awake in bed; moaning; rfp writer attempt to feed pt; pt shaking his head away from foods/fluids; oral care with toothette; pt now biting on toothette; iv intact and patent; restraints continued; de [place] ro[place] to gravity; o2 per nc; call light within reach
--- NOTE | 2020-10-11 19:28 | NUR ---
PATIENT RESTING IN BED WITH EYES CLOSED. RESP EVEN AND UNLABORED, 4L VIA NC. NO S/S DISTRESS NOTED. CENTRAL LINE INFUSING FLUIDS. CIMA PREFORMED. DILL DRAINING CLOUDY SUSAN COLORED URINE. SR/ST ON TELE. BILATERAL RESTRAINITS IN PLACE. PATIENT ALERT TO SELF AT TIMES. ORAL CARE PERFORMED. ORDERS GIVEN FOR RESTRIANT RENEWAL, PER DR. BURCIAGA.
--- NOTE | 2020-10-11 23:20 | NUR ---
PATIENT MOANING, CALLING OUT, AND ROLLING SIDE TO SIDE IN BED. I WILL MEDICATE PER MD ORDERS. FALL AND SAFTEY PRECAUTIONS IN PLACE. BILATERAL WRIST RESTRAINTS IN PLACE.
[2020-10-12] VITALS (14 sets, daily range): BP systolic 105–167; BP diastolic 56–85
--- NOTE | 2020-10-12 00:56 | NUR ---
PATIENT HAS LOW GRADE FEVER, MEDICATED WITH TORADOL. FALL AND SAFTEY PRECAUTIONS IN PLACE. PATIENT IS CALLING OUT AND MOANING, MEDICATED WITH ATIVAN.
--- NOTE | 2020-10-12 02:55 | NUR ---
PATIENT CALLING OUT AND MOANING, MEDS GIVEN PER MD ORDERS.
[2020-10-12 05:23] LABS: HEMATOCRIT 26.1 % (39.0-50.0); IMMATURE GRANULOCYTES 0.8 % (0.0-5.0); MEAN CORPUSCULAR HGB 26.7 pG CALC (26.0-32.0); MEAN CORPUSCULAR HGB CONC 30.7 g/dL CAL (32.0-36.0); NEUT# 9.59 thou/uL (1.82-7.42); RED CELL DISTRI WIDTH 16.1 % (11.5-15.5)
[2020-10-12 05:47] LABS: ALBUMIN 2.2 g/dL (3.2-5.0); ALKALINE PHOSPHATASE 154 u/l (38-126); BUN 19 mg/dL (9-20); BUN/CREATININE RATIO 21 (12-20 (CALC)); CARBON DIOXIDE 24 mmol/l (22-30); CHLORIDE 122 mmol/l (95-108); CREATININE 0.9 mg/dL (0.7-1.3); GFR > 60 ML/MIN (>=60 (CALC)); GFR FOR AFR.AMER. > 60 ML/MIN (>=60 (CALC)); SODIUM 150 mmol/l (137-146); TOTAL PROTEIN 5.3 g/dL (6.3-8.2)
[2020-10-12 05:57] LABS: ANION GAP 8 (6-22 (CALC)); BILIRUBIN, TOTAL 6.4 mg/dL (0.0-1.4); POTASSIUM 3.9 mmol/l (3.5-5.1); SGOT/AST 121 u/l (17-59)
--- NOTE | 2020-10-12 06:11 | NUR ---
PATIENT RESTING WITH EYES CLOSED. FALL AND SAFTEY PRECAUTIONS IN PLACE. BILATERAL WRIST RESTRIANTS IN PLACE
--- NOTE | 2020-10-12 06:39 | NUR ---
PT ON 4LPM NC. RESTING IN BED AT THIS TIME. NO ACUTE RESPIRATORY DISTRESS AT THIS TIME. VITAL SIGNS MAINTINING. REFLOW OPERATOR TO MONITOR.
--- NOTE | 2020-10-12 07:09 | NUR ---
pt awake in bed; no apparent distress noted; assessment completed at this time; pt alert to person only, will state first name; pt constantly moaning; admits to pain; increased moaning with repositioning; no n/v noted per senior mortgage underwriter; resp even and unlabored; skin color juandiced; lungs clesar/ diminished bases; o2 per nc at 4L; cnp cough noted; hr reg; strong pulses; no edema noted; sr on monitor; abd soft with bs present; no bm noted per senior mortgage underwriter; slight excoriation noted to post scrotal; de la rosa to gravity draining cloudy angy urine; cath strap intact; TLC patent to right subclavian with ivf infusing without complication; no redness or edema noted at site; restraints released and reapplied for nursing care/ repositioning; repositioned to right side; plan of care/ meds explained; call light within reach; will continue to monitor closely
--- NOTE | 2020-10-12 07:40 | NUR ---
ATTEMPT MADE TO HELP PT EAT BREAKFAST. PT PLACED IN HIGH FOWLERS POSITION. PT REFUSED. PT ABLE TO TAKE SMALL SIPS OF JUICE.
--- NOTE | 2020-10-12 08:01 | NUR ---
awake in bed moaning; no apparent distress noted; restraints intact; de la rosa to gravity; call light within reach; will continue to monitor
--- NOTE | 2020-10-12 09:47 | NUR ---
Dr Moeller present at bedside to assess pt and discuss plan of care
--- NOTE | 2020-10-12 10:09 | NUR ---
awake in bed; no apparent distress noted; o2 per nc; de la rosa to gravity; sr on monitor; call light within reach; will continue to monitor
--- NOTE | 2020-10-12 12:10 | NUR ---
pt resting in bed closed; no apparent distress noted; restraints intact and maintained; de la rosa to gravity; will continue to monitor
--- NOTE | 2020-10-12 12:42 | NUR ---
PT RESTING, FLAT IN BED. NO ACUTE CHANGES/DISTRESS. VSS.
--- NOTE | 2020-10-12 13:24 | NUR ---
complete bed bath and linen change; medicated for pain and temp; repositioned; will continue to monitor
--- NOTE | 2020-10-12 13:30 | NUR ---
Linda called this real estate underwriter; passcode verified; update provided; Anna to visit
--- NOTE | 2020-10-12 14:05 | NUR ---
resting in bed; moaning noted; no apparent distress noted; iv intact and patent; de la rosa to gravity; sr on monitor; call light within reach; will continue to monitor; restraints continued
--- NOTE | 2020-10-12 14:44 | NUR ---
awake in bed; confused; anxious; repositioned; moaning frequently; will continue to monitor
--- NOTE | 2020-10-12 16:00 | NUR ---
pt resting in bed; no apparent distress noted; iv intact and patent; no redness or edema noted at site; sr on monitor; de la rosa to gravity; call light within reach; will continue to monitor
--- NOTE | 2020-10-12 17:02 | NUR ---
Linda Cummings present at bedside for visitation; will continue to monitor
--- NOTE | 2020-10-12 17:09 | NUR ---
s/o Anna present at bedside; inquiring rudely "why is pt not receiving his pain medication"; advertising copy writer explained pt was receiving IV morphine; Linda states pt is receiving 30mg oxycodone and dilaudid and wishing to know the ratio for IV medication; Linda requesting juice for pt; provided; pt not willing to drink at this time; Anna forcing meds with straw; risk of aspiration explained in detail; s/o inquiring about IV food; ivf explained; Linda has been explained that nursing staff has been at bedside attempting to feed each meal with pt declining; [facility] to be called per this advertising copy writer for med list; will continue to monitor
--- NOTE | 2020-10-12 17:16 | NUR ---
[facility] ([facility]) called per conventional mortgage underwriter at [phone]; medication list verified with Pharmacist; Folic, Ambien, Oxycodone verified; Mobic last filled 12/2019; no fills noted for Dilaudid or MS Contin as per s/o Linda statement; will continue to monitor
--- NOTE | 2020-10-12 17:30 | NUR ---
Linda at bedside; meds explained; Linda wishing for Oxycodone to be given IV; Linda also informed this song writer pt has Saraid and MS Hussein filled at [facility] [place]; again, IV morphine explained in addition to IV Ativan; Linda informed this song writer pt she a pain specialist Dr Hector in [facility]; Linda now wishing for all meds to be given " in the bag (pointing to IV bag); song writer has informed Linda all medications are not available iv; Linda stating to needs his benzodiazepine; song writer explained to Linda pt is receiving IV Ativan; MD will be called for adjustment of medications
--- NOTE | 2020-10-12 17:37 | NUR ---
Dr Moeller called per underwriter solicitation director; explained to MD s/o Linda concerns with pain medication; MD aware pt continues to not take po at this time; orders received and on chart
--- NOTE | 2020-10-12 18:11 | NUR ---
pt resting in bed with eyes closed; no distress noted; sr on monitor; bed alarm set for pt safety; call light within reach
--- NOTE | 2020-10-12 19:30 | NUR ---
RESTING IN BED WITH EYES CLOSED. OPENS EYES TO NAM. PATIENT REMAINS CONFUSED. SPEECH GARBLED. FOLLOWS SOME DIRECTIONS. MOANS WHEN AWAKE. O2 ON PER NC AT 4 L. BREATH SOUNDS CLEAR./ NO PERIPHERAL EDEMA,PULSES PALPABLE. RTLSC IN PLACE, DSG CDI, D51/2NS WITH 40 KCL INFUSING AT 100 ML/HR. DILL DRAINS CLEAR SUSAN URINE. RESTRAINTS NOT CURRENTLY IN USE. CARDAIC MONITOR SHOWS ST. CALL AVILES IN REACH.
--- NOTE | 2020-10-12 20:16 | NUR ---
DILAUDID 1 MG IVP FOR C/O GENERALIZED PAIN.
--- NOTE | 2020-10-12 20:40 | NUR ---
RESTING QUIETLY AT THIS TIME.
--- NOTE | 2020-10-12 22:00 | NUR ---
RESTIGN QUIETLY WITH EYES CLSOED. RESP NON-LABORED. VSS. SR ON MONTIOR, HR 90'S.
[2020-10-13] VITALS (12 sets, daily range): BP systolic 90–147; BP diastolic 50–89
--- NOTE | 2020-10-13 00:05 | NUR ---
PATIENT RESTING QUIETLY IN BED WITH EYES CLOSED. RESP NON-LABORED. O2 SAT 98% VSS. SR ON MONITOR.ESTER HERNANDEZ PHONED IN FOR CONDITION UPDATED.
--- NOTE | 2020-10-13 00:29 | NUR ---
PATIENT AWAKE, MOANING AND GROAINING. QUESTIONED REGARDING PAIN PATIENT STATES "ALL OVER." MEDICATE DWITH DILAUDID ORDERED FOR PAIN.
--- NOTE | 2020-10-13 01:00 | NUR ---
RESTING QUIETLY SINCE BENG MEDICATED FOR PAIN.
--- NOTE | 2020-10-13 02:00 | NUR ---
RESTING WITH EYES CLOSED. CALM AND COOPERATIVE.
--- NOTE | 2020-10-13 04:00 | NUR ---
SLEEPING SOUNDLY. RESP NON-LABORED. VSS. SR-ST ON MONITOR.
--- NOTE | 2020-10-13 04:50 | NUR ---
AWAKENS TO NAME. REMAINS CONFUSED. COOPERATIVE WITH CARE. BLOOD DRAWN FROM TLC FOR AM LABS. ALL PORTS OF TLC HAVE GOOD BLOOD RETURN, FLUSHED PRE AND POST BLOOD DRAW PER PROTOCOL.
--- NOTE | 2020-10-13 06:10 | NUR ---
SLEPT FOR LONG INTERVALS DURING THE NIGHT. VSS. RESP NON-LABORED. RTLSC INTACT WITH D51/2 WITH 40 KCL INFUSING AT 80 ML/HR. SR-ST ON MONITOR. FUENTES LONG CLEAR SUSAN URINE.
[2020-10-13 06:12] LABS: HEMATOCRIT 26.6 % (39.0-50.0); HEMOGLOBIN 8.3 g/dl (14.0-18.0); MEAN CELL VOLUME 87.5 fL CALC (80.0-100.0); MEAN CORPUSCULAR HGB 27.3 pG CALC (26.0-32.0); MEAN CORPUSCULAR HGB CONC 31.2 g/dL CAL (32.0-36.0); RED BLOOD COUNT 3.04 mill/uL (4.70-6.10); RED CELL DISTRI WIDTH 16.1 % (11.5-15.5)
[2020-10-13 06:21] LABS: ALBUMIN 2.4 g/dL (3.2-5.0); ALKALINE PHOSPHATASE 160 u/l (38-126); ANION GAP 9 (6-22 (CALC)); BILIRUBIN, TOTAL 5.5 mg/dL (0.0-1.4); BUN 15 mg/dL (9-20); BUN/CREATININE RATIO 16 (12-20 (CALC)); CARBON DIOXIDE 22 mmol/l (22-30); CHLORIDE 116 mmol/l (95-108); CREATININE 0.9 mg/dL (0.7-1.3); GFR > 60 ML/MIN (>=60 (CALC)); GFR FOR AFR.AMER. > 60 ML/MIN (>=60 (CALC)); POTASSIUM 4.4 mmol/l (3.5-5.1); SGOT/AST 97 u/l (17-59); SODIUM 143 mmol/l (137-146); TOTAL PROTEIN 5.8 g/dL (6.3-8.2)
--- NOTE | 2020-10-13 07:20 | NUR ---
pt awake in bed moaning loudly; no apparent distress noted; assessment completed at this time; pt able to state name and month and day; admits to pain; medicated with dilaudid as per orders; no n/v noted; resp even and unlabored; lungs clear/ diminished; skin color jaundiced; o2 per nc at 4L; hr reg; strong pulses; no edema noted; sr on monitor; abd soft with bs present; no bm noted per automatic typewriter inspector; de la rosa to gravity draining cloudy angy urine; TLC patent to right subclav with ivf infusing without complication; no redness or edema noted at site; repositioned; bed alarm set for pt safety; restraints remain discontinued; call light within reach; will continue to monitor
--- NOTE | 2020-10-13 08:03 | NUR ---
staff at bedside feeding pt; pt able to tolerating 120cc juice and small bites of breakfast; no coughing/ signs of aspiration noted; st on monitor; de la rosa to gravity; will continue to monitor
--- NOTE | 2020-10-13 08:56 | NUR ---
Dr Moeller present at bedside to assess pt and discuss plan of care
--- NOTE | 2020-10-13 09:35 | NUR ---
RT at bedside for vapotherm trial as per MD request; staff will remain at bedside to monitor pt
--- NOTE | 2020-10-13 10:06 | NUR ---
pt awake in bed; repositioned self to left side; bed alarm active for pt safety; sr on monitor; o2 per nc; de la rosa to gravity; medicated and tolerated well; call light within reach; will continue to monitor
--- NOTE | 2020-10-13 10:26 | NUR ---
pt noted more restless/anxious; pt climbing out of bed; staff x3 at bedside; pt attempting to pull de la rosa out; repositioned in bed; reassured; medicated with ativan; will continue to monitor
--- NOTE | 2020-10-13 12:00 | NUR ---
pt awake in bed; no apparent distress noted; resp even and unlabored; o2 per nc; iv intact and patent; no redness or edema noted at site; st on monitor; call light within reach; will continue to monitor
--- NOTE | 2020-10-13 12:51 | NUR ---
Dr Moeller called per investigative writer; informed of temp 100.6; orders received and on chart
--- NOTE | 2020-10-13 14:00 | NUR ---
sleeping; no apparent distress noted; iv intact and patent; st on monitor; de la rosa to gravity; call light within reach; will continue to monitor
--- NOTE | 2020-10-13 16:00 | NUR ---
resting in bed with eyes closed; no apparent distress noted; resp even and unlabored; iv intact and patent; de la rosa to gravity; o2 per nc; st on monitor; call light within reach; will continue to monitor
--- NOTE | 2020-10-13 16:45 | NUR ---
call received from Mery; gunner verified (Mery obtained passcode from Linda); update provided
--- NOTE | 2020-10-13 17:48 | NUR ---
awake in bed; positioned high pagan's; staff at bedside to feed pt; iv intact and patent; no redness or edema noted at site; de la rosa to gravity; sr on monitor; call light within reach
--- NOTE | 2020-10-13 19:30 | NUR ---
eyes closed. no distress.
--- NOTE | 2020-10-13 20:10 | NUR ---
awakens easily. no acute distress. o2 cont 4 l/m per nc. oriented to name only. speaks in low slurred/garbled tones. gazes off for short periods of time. panel monitor shows sinus rhythm hr 86. rt chest tlc in place. d51/2ns w 40 kcl infusing @ 80cchr. po fluids taken well. no choking. de la rosa cath in place. urine cloudy/murky angy. turned & repositioned. requires total care for all needs. bed alarm conts.
--- NOTE | 2020-10-13 22:00 | NUR ---
eyes closed. no distress. equipment monitor phototypesetting shows sinus rhythm hr 80.
[2020-10-14] VITALS (14 sets, daily range): BP systolic 89–147; BP diastolic 51–76
--- NOTE | 2020-10-14 00:01 | NUR ---
eyes closed. no distress. property assessment monitor shows sinus rhythm hr 74.
--- NOTE | 2020-10-14 02:00 | NUR ---
resting quietly. resps even & unlabored. no distress. quality assurance monitor body shows sinus tach hr 116.
--- NOTE | 2020-10-14 04:30 | NUR ---
blood drawn & sent to lab.
[2020-10-14 04:52] LABS: HEMATOCRIT 25.4 % (39.0-50.0); HEMOGLOBIN 7.9 g/dl (14.0-18.0); MEAN CELL VOLUME 87.9 fL CALC (80.0-100.0); MEAN CORPUSCULAR HGB 27.3 pG CALC (26.0-32.0); MEAN CORPUSCULAR HGB CONC 31.1 g/dL CAL (32.0-36.0); RED BLOOD COUNT 2.89 mill/uL (4.70-6.10); RED CELL DISTRI WIDTH 15.9 % (11.5-15.5)
[2020-10-14 05:08] LABS: ALBUMIN 2.2 g/dL (3.2-5.0); ALKALINE PHOSPHATASE 159 u/l (38-126); ANION GAP 7 (6-22 (CALC)); BILIRUBIN, TOTAL 3.8 mg/dL (0.0-1.4); BUN 21 mg/dL (9-20); BUN/CREATININE RATIO 20 (12-20 (CALC)); CARBON DIOXIDE 23 mmol/l (22-30); CHLORIDE 113 mmol/l (95-108); GFR > 60 ML/MIN (>=60 (CALC)); GFR FOR AFR.AMER. > 60 ML/MIN (>=60 (CALC)); POTASSIUM 4.2 mmol/l (3.5-5.1); SGOT/AST 57 u/l (17-59); SODIUM 138 mmol/l (137-146); TOTAL PROTEIN 5.5 g/dL (6.3-8.2)
--- NOTE | 2020-10-14 06:45 | NUR ---
RECIEVED REPORT FROM GEREMIAS MCKEON. [facility]
--- NOTE | 2020-10-14 07:00 | NUR ---
PT GIVEN CBB, DILL CARE AND COMPLETE LINEN CHANGE. PT TOLERATED WELL. CALL LIGHT IN REACH. WILL MONITOR.
--- NOTE | 2020-10-14 07:30 | NUR ---
STAFF AT BEDSIDE TO ASSIST WITH FEEDING.
--- NOTE | 2020-10-14 08:00 | NUR ---
PT ALERT TO SELF, SR ON TELEMETRY, HR 92. PT DENIES CP OR SOB AT THIS TIME. RESPIRATION SHALLOW/UNLABORED. LS CLEAR/DIMINISHED THROUGHOUT. SA02@100% 4LPM/NC. ABDOMEN FIRM.NONTENDER, BSX4 ACTIVE. FUENTES REMAINS PATENT TO BSD VIA GRAVITY. DARK SUSAN URINE/SEDIMENT. R/TLC INFUSING ORDERED, NO S/S OF INFILTRATION OR INFECTION AT SITE. CALL LIGHT IN REACH. WILL MONITOR.
--- NOTE | 2020-10-14 09:00 | NUR ---
DR. BURCIAGA AT BEDSIDE FOR ASSESSMENT AND TO DISCUSS PLAN OF CARE, CONSULT ORDERED FOR DR. ANDERSON AND ECHO. WILL MONITOR.
--- NOTE | 2020-10-14 09:28 | NUR ---
CONSULT BOOKED FOR DR. ANDERSON IN [place].
--- NOTE | 2020-10-14 11:00 | NUR ---
ACCU CHECK DONE
--- NOTE | 2020-10-14 12:00 | NUR ---
PT REPOSITIONED, STAFF ASSISTED WITH FEEDING. PT TOLERATED WELL, ATE MINIMAL,DRANK 400ML JUICE. RESPIRATIONS EVEN/UNLABORED, CALL LIGHT IN REACH. WILL MONITOR.
--- NOTE | 2020-10-14 14:31 | NUR ---
DR. ABBASI CALLED VIA VIDEO CONFERENCE, WILL MAKE RECOMMENDATIONS TO DR. BURCIAGA.
--- NOTE | 2020-10-14 15:48 | NUR ---
PT REMOVED , SA02@100%RA. WILL CONTINUE TO MONITOR.
--- NOTE | 2020-10-14 17:39 | NUR ---
DAVID CALLED WITH CODE, UPDATE GIVEN.
--- NOTE | 2020-10-14 19:00 | NUR ---
RECEIVED REPORT FROM OUTGOING RN. PATIENT SLEEPING SUPINE POSITION IN BED AT THIS TIME. NO SIGNS OF DISTRESS NOTED. ON ROOM AIR, SR ON MONITOR, VSS, AFEBRILE AT THIS TIME.
--- NOTE | 2020-10-14 21:52 | NUR ---
PT RESTING QUIETLY AT THIS TIME. PAIN MEDICATION EFFECTIVE FOR PATIENTS CHRONIC BACK PAIN. MOTRIN GIVEN FOR PTS TEMP OF 101.1. PT IS ALERT TO SELF ONLY, ANSWERS SIMPLE QUESTIONS APPROPRIATELY.
[2020-10-15] VITALS (17 sets, daily range): BP systolic 82–112; BP diastolic 46–78
--- NOTE | 2020-10-15 00:10 | NUR ---
PT RESTING SUPINE POSITION IN BED, ALERT AND COOPERATIVE AT THIS TIME. REMAINS HYPOTENSIVE 82/47 AFTER POSTION CHANGE/CUFF CHECK, HOB ELEVATION. DENIES PAIN. DILL INTACT AND DRAINING. SR ON MONITOR AT 83, 95% ON RA. NOTIFIED PHYSICIAN PLANT OPERATOR/SHIFT SUPERVISOR.
--- NOTE | 2020-10-15 02:00 | NUR ---
PT RESTING QUIETLY AT THIS TIME. NO OBSERVABLE S/S OF SOB/PAIN OR DISTRESS. NEW ORDERS RECEIVED FOR 1L BOLUS NS FOR HYPOTENSION. SR ON MONITOR.
--- NOTE | 2020-10-15 04:07 | NUR ---
PT SLEEPING AT THIS TIME. FLUID BOLUS COMPLETE. BP 99/60, SR ON MONITOR. 96% ON RA. NO S/S OF DISTRESS OBSERVED.
[2020-10-15 05:40] LABS: ALBUMIN 2.1 g/dL (3.2-5.0); ALKALINE PHOSPHATASE 185 u/l (38-126); ANION GAP 6 (6-22 (CALC)); BUN 18 mg/dL (9-20); BUN/CREATININE RATIO 19 (12-20 (CALC)); CARBON DIOXIDE 24 mmol/l (22-30); CHLORIDE 108 mmol/l (95-108); GFR > 60 ML/MIN (>=60 (CALC)); GFR FOR AFR.AMER. > 60 ML/MIN (>=60 (CALC)); POTASSIUM 4.1 mmol/l (3.5-5.1); SGOT/AST 42 u/l (17-59); SODIUM 134 mmol/l (137-146); TOTAL PROTEIN 5.2 g/dL (6.3-8.2)
[2020-10-15 05:41] LABS: BILIRUBIN, TOTAL 2.1 mg/dL (0.0-1.4)
[2020-10-15 05:56] LABS: HEMATOCRIT 22.7 % (39.0-50.0); HEMOGLOBIN 7.1 g/dl (14.0-18.0); MEAN CELL VOLUME 87.6 fL CALC (80.0-100.0); MEAN CORPUSCULAR HGB 27.4 pG CALC (26.0-32.0); MEAN CORPUSCULAR HGB CONC 31.3 g/dL CAL (32.0-36.0); RED BLOOD COUNT 2.59 mill/uL (4.70-6.10)
--- NOTE | 2020-10-15 06:45 | NUR ---
RECIEVED REPORT FROM URIEL CARRILLO. ASSUMED PT CARE.
--- NOTE | 2020-10-15 07:20 | NUR ---
PT RESTING, ASSESSMENT COMPLETE, DILL PATENT DRAINING TO BSD VIA GRAVITY. CALL LIGHT IN REACH. NEW ORDERS RECIEVED.
--- NOTE | 2020-10-15 07:30 | NUR ---
SAMPLE OBTAINED FOR TYPE IN SCREEN FROM CENTRAL LINE.
--- NOTE | 2020-10-15 08:43 | NUR ---
TELEPHONE VERBAL CONSENT OBTAINED BY SHEILA. Christina MCKEON RN WITNESS.
--- NOTE | 2020-10-15 09:02 | NUR ---
PRBC STARTED. WILL MONITOR.
--- NOTE | 2020-10-15 10:21 | NUR ---
CXR AT BS
--- NOTE | 2020-10-15 10:30 | NUR ---
DR. BURCIAGA AT BEDSIDE FOR ASSESSMENT AND TO DISCUSS PLAN OF CARE, NEW ORDERS RECIEVED. CALL LIGHT IN REACH.
--- NOTE | 2020-10-15 11:55 | NUR ---
PT REPOSITIONED FOR COMFORT, RESPIRATIONS EVEN/UNLABORED. CALL LIGHT IN REACH.
--- NOTE | 2020-10-15 13:34 | NUR ---
LEONOR AT FOR ECHO.
--- NOTE | 2020-10-15 14:30 | NUR ---
DR. BURCIAGA NOTIFIED UPON COMPLETE OF ECHO, AWAITING FINALE READINGS. PT MEDICATED FOR TEMP 100.8 ORDERED. WILL MONITOR.
--- NOTE | 2020-10-15 16:17 | NUR ---
[facility] CALLED BACK, [facility] DECLINED TRANSFER DUE TO UNACCEPTED INSURANCE. DR. BURCIAGA NOTIFIED AWAITING FURTHER INSTRUCTIONS.
--- NOTE | 2020-10-15 16:24 | NUR ---
PER DR. BURCIAGA. [facility] NOTIFIED TO INITIATE TRANSFER TO [facility].[phone]
--- NOTE | 2020-10-15 16:53 | NUR ---
SPOKE WITH REVA AT [facility], TO INITIATE TRANSFER, FACE SHEET FAXED TO [phone].
--- NOTE | 2020-10-15 17:13 | NUR ---
REVA FROM [facility] [phone] EMERITA RAMIREZ ROOM TOWER 230. WILL CALL BACK WITH ETA FROM [employer]. PT UPDATED.
--- NOTE | 2020-10-15 17:20 | NUR ---
[facility] NOTIFIED, ISIDRO [phone]. CONDENSER CLEANER ETA 30 MIN. PT UPDATED.
--- NOTE | 2020-10-15 17:33 | NUR ---
PT REQUESTED THIS [employer] NITRATE CRYSTALLIZER TO NOTIFY DAVID, REQUEST GRANTED.
--- NOTE | 2020-10-15 17:38 | NUR ---
DR. 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 REPORT TO FOLLOW, DR. BURCIAGA NOTIFIED.
--- NOTE | 2020-10-15 17:52 | NUR ---
[facility] CALLED , ETA DELAYED TO 8:30PM-9PM. PT UPDATED.
--- NOTE | 2020-10-15 18:27 | NUR ---
REPORT CALLED TO ARSH AT [facility] [phone]. CALLED [facility] AND SPOKE WITH ROSLYN, UPDATED ETA APPROX 9;30PM -10:30 PM
--- NOTE | 2020-10-15 19:00 | NUR ---
REPORT RECEIVED, PT SEMI BAI POSITION RESTING QUIETLY, DENIES PAIN OR DISCOMFORT. DILL PATENT AND DRAINING. AWAITING TRANSFER TO [facility]. SR ON MONITOR. VSS AT THIS TIME.
--- NOTE | 2020-10-15 21:15 | NUR ---
PT SLEEPING AT THIS TIME, BELONGINGS GATHERED FOR TRANSFER, DILL EMPTIED-1000ML URINE. VSS, HYPOTENSIVE SINCE PREVIOUS SHIFT. WILL CONTINUE TO MONITOR. SR ON TELE.
--- NOTE | 2020-10-15 22:10 | NUR ---
REPORT GIVEN TO [facility] PERSONNEL. TRANSFER DOCUMENTATION/PACKET PROVIDED WITH UPDATED EMR. PATIENT LOADED TO STRETCHER WITH STAFF ASSIST. PT IS ALERT AND CALM. VSS BP 106/60, AFEBRILE, AND NO S/S OF DISTRESS NOTED.
== END 2020-10-15 22:15 | disposition short-term general hospital (02) | DRG 871 ==
PROVIDERS: Family Medicine; Internal Medicine; Nurse Practitioner; ADMIT Internal Medicine
PROC: 0T9B70Z Drainage of Bladder with Drainage Device, Via Natural or Artificial Opening (ICD-10-PCS; principal; 2020-10-08)
PROC: 02HV33Z Insertion of Infusion Device into Superior Vena Cava, Percutaneous Approach (ICD-10-PCS; 2020-10-08)
PROC: 30233N1 Transfusion of Nonautologous Red Blood Cells into Peripheral Vein, Percutaneous Approach (ICD-10-PCS; 2020-10-15)
DX: A41.53 Sepsis due to Serratia (principal); R65.21 Severe sepsis with septic shock; G93.41 Metabolic encephalopathy; I33.9 Acute and subacute endocarditis, unspecified; N17.9 Acute kidney failure, unspecified; M62.82 Rhabdomyolysis; E86.0 Dehydration; F19.10 Other psychoactive substance abuse, uncomplicated; E87.6 Hypokalemia; I95.9 Hypotension, unspecified; D69.6 Thrombocytopenia, unspecified; G89.4 Chronic pain syndrome; E80.6 Other disorders of bilirubin metabolism; K72.90 Hepatic failure, unspecified without coma; F10.10 Alcohol abuse, uncomplicated; Z78.1 Physical restraint status; Z95.1 Presence of aortocoronary bypass graft; Z79.891 Long term (current) use of opiate analgesic; Z90.2 Acquired absence of lung [part of]; Z95.3 Presence of xenogenic heart valve; Z20.822 Contact with and (suspected) exposure to COVID-19
CPT/HCPCS: J0131; J0692; J1650; J2060; J3370; P9016; Q3014